=== PATIENT | male | born 1965 | race Caucasian/White ===

== ENCOUNTER 2017-01-06 06:17 | Observation (INO) ==
--- NOTE | 2017-01-04 10:52 | EKG Report ---
Test Performed on : 01/04/2017 10:21:58 AM Test Reason : surg Blood Pressure : / mmHG Vent. Rate : 062 BPM Atrial Rate : 062 BPM P-R Int : 136 ms QRS Dur : 088 ms QT Int : 414 ms P-R-T Axes : 043 046 051 degrees QTc Int : 420 ms Normal sinus rhythm. Nonspecific T wave abnormality aVL Normal ECG No previous ECGs available Confirmed by Himanshu Acevedo DO ([id number]) on 01/04/2017 6:21:04 PM
[2017-01-04 11:07] LABS: MANUAL DIFF NEEDED? NO
[2017-01-04 11:13] LABS: BASO% 0.2 % (0.0-0.8); EOS# 0.11 X1000 (0.0-0.7); EOS% 1.3 % (0.0-10.0); HEMATOCRIT 41.8 % (42.0-52.0); HEMOGLOBIN 14.8 g/dL (14.0-18.0); IMM GRAN# 0.04 X1000 (0.0-0.04); IMM GRAN% 0.5 % (0.0-0.5); LYMPH# 1.57 X1000 (1.2-3.4); LYMPH% 19.1 % (20.5-51.1); MCHC 35.4 g/dL (33-37); MCV 84.8 FL (81-99); MONO% 9.7 % (1.7-9.3); MPV 11.2 FL (7.4-10.4); NEUT% 69.2 % (42.2-75.2); PLT 180 X1000 (130-400); RBC 4.93 XMIL (4.7-6.1)
[2017-01-04 11:30] LABS: AGAP 14; BUN 15 mg/dL (8-22); CALCIUM 9.5 mg/dL (8.8-10.2); CHLORIDE 99 mmol/L (98-107); COSMO 280; POTASSIUM 4.2 mmol/L (3.5-5.1); SODIUM 140 mmol/L (136-145); TCO2 27 mmol/L (25-35)
[2017-01-06] MEDS ORDERED: PEPCID ONE (06:56)
[2017-01-06] MEDS ORDERED: REGLAN ONE (06:56)
[2017-01-06] MEDS ORDERED: LR 1,000 ML ONE (06:56)
[2017-01-06] MEDS ORDERED: KEFZOL 2 GM/D5W 2 GM/50 ML IVPB ONE (06:57)
[2017-01-06] MEDS ORDERED: ZOFRAN ONE (07:48)
[2017-01-06] MEDS ORDERED: ROBINUL ONE (07:48)
[2017-01-06] MEDS ORDERED: XYLOCAINE-MPF 2% ONE (07:48)
[2017-01-06] MEDS ORDERED: FENTANYL ONE ×2 (07:48→10:59)
[2017-01-06] MEDS ORDERED: DIPRIVAN 1% ONE (07:49)
[2017-01-06] MEDS ORDERED: VERSED ONE ×2 (08:26)
[2017-01-06] MEDS ORDERED: NAROPIN 0.5% ONE (08:26)
[2017-01-06] MEDS ORDERED: LABETALOL ONE (11:09)
[2017-01-06] MEDS ORDERED: PERICOLACE PO PRN (13:00)
--- NOTE | 2017-01-06 14:35 | OPERATIVE NOTE ---
PROCEDURE DATE: 01/06/2017 PREOPERATIVE DIAGNOSIS: Right talar neck fracture. POSTOPERATIVE DIAGNOSIS: Right talar neck fracture. PROCEDURE: Right open reduction internal fixation talar neck. SURGEON: Dr. Terrell Aguilar. [address] VENDOR: June Diego, nurse practitioner. ANESTHESIA: General with LMA and preoperative popliteal block. ESTIMATED BLOOD LOSS: About 20 mL. TOURNIQUET TIME: 130 minutes. IMPLANTS: 1. Biomet mini fragment plate and locking screws. 2. Biomet 4-0 fully threaded cannulated screw. DISPOSITION: To PACU, hemodynamically stable. INDICATION FOR PROCEDURE: Mr. Timmy Faith is a 51-year-old male, who presented to my clinic about 1 week ago with a talar neck fracture that was not subluxated or dislocated. I discussed with him then about open reduction internal fixation. He was pretty swollen at the time, so we waited for swelling to go down over the past week and a half. So discussed with him about proceeding to the OR today, and he expressed understanding and wished to proceed. DESCRIPTION OF PROCEDURE IN DETAIL: Mr. Faith was identified in the preop holding area. Right foot was marked as correct surgical site. He was then wheeled to the operating room, placed supine on the operating table. All bony prominences well padded. He was induced under general anesthesia. LMA was placed. Tourniquet was placed to the right thigh. Right lower extremity was then prepped with chlorhexidine gluconate scrub and then ChloraPrep, and draped in normal sterile fashion. Surgical pause was performed. We identified the correct patient, correct side, and the correct procedure. Preop antibiotics were given. I started with Esmarch to exsanguinate the right lower extremity and tourniquet inflated 300 mmHg. Total tourniquet time was 130 minutes. We then started on the medial side with a longitudinal incision in between the anterior tibialis tendon and the posterior tibial tendon. Dissection was carried down to the level of the capsule and then opened the capsule at the TN joint and then followed that proximally up onto the fractured area. We exposed that fractured area. There were a few loose pieces that were there, and those we debrided were out of the joint. It looked pretty comminuted on that medial aspect. At this point, we also made an incision on the lateral aspect of the hind foot and midfoot junction right along the line of the fourth metatarsal. Dissection was carried down just lateral to the peroneus tertius tendon which was retracted medially. It came right down onto the fracture site. I opened up that area, and then we were able to evaluate the fracture as a hole having to expose both medially and laterally. He had a lot of comminution especially laterally. There is a lot of small bone fragments. The ones that were free I ended up taking out; some of them were attached to soft tissues. We tried to leave as much soft tissue attachment as possible. I did dissect onto the head a little bit laterally because he had that head split seen on CT scan. So, ended up reducing that head split and placing a 2/5 headless compression screw across it to stabilize it. After this I was able to manipulate that talar head fragment, get a lot better alignment. It was really tough to gauge his reduction secondary to the amount of comminution that was there. It took a few tries to get our temporary fixation in perfect position both medially and laterally, but we were able to get a good reduction and fluoroscopically showed that we did have a good reduction as well. At this point, I placed a small 4 hole plate laterally in that shoulder area of the talus; 2 screws that went up into the body and then 2 screws in the head, and those were all locking screws. That held things together actually really well. I then came back to the medial side. The head was fairly comminuted still there on that most medial aspect. It was actually tough to get a little bit of fixation, but I was able to go a little through that comminution and go up under it and grab some cancellous bone with a fully threaded screw up into the body and actually held that really well. Range of motion of the TN joint then looked fine, and ankle range of motion looked fine as well. Final fluoroscopic imaging's were taken which showed on the lateral view you could see the posterior facet and it looked very well reduced and so did the middle facet. The ankle joint looked good and across the talar neck looked good as well. AP ankle revealed all hardware looked to be in good position. AP foot and canal oblique view showed that all our hardware looked to be in good position as well and our reduction looked good. At this point, we then irrigated everything copiously with normal saline, the joint and both medial and lateral incisions. I then closed the deep layer with 0 Vicryl, both medial and lateral sides, to cover all our hardware and close capsule, and then 2-0 Vicryl for the subcutaneous and nylon on the skin. Adaptic, 4 x 4s, ABDs, soft roll, posterior splint was applied. Tourniquet was let down and patient had good capillary refill return to the toes. Patient was then wheeled from general anesthesia, moved to his own bed and taken to the PACU in stable condition. Postoperatively, patient will be nonweightbearing right lower extremity. He will be admitted to observation overnight. If he is doing well, then I will discharge him home tomorrow morning. cc: Terrell Aguilar MD
[2017-01-06] MEDS: KEFZOL 1 GM/D5W 1 GM/50 ML IVPB IV SCH ×2 (16:28→23:59)
[2017-01-06] MEDS: OXY IR PO PRN (22:32)
[2017-01-07] MEDS: MORPHINE IV PRN ×5 (03:55→16:50)
[2017-01-07] MEDS ORDERED: TYLENOL PO PRN (04:19)
[2017-01-07] MEDS: LOVENOX SUBQ SCH ×2 (05:07→05:11)
[2017-01-07] MEDS: OXY IR PO PRN ×6 (05:07→23:13)
[2017-01-07] MEDS: LIPITOR PO SCH (09:36)
[2017-01-07] MEDS: OXYCONTIN PO SCH ×2 (09:36→21:00)
[2017-01-07] MEDS: ZIAC 10/6.25 MG PO SCH (09:37)
[2017-01-07] MEDS: LOFIBRA PO SCH (09:37)
[2017-01-07] MEDS: THERA M PLUS PO SCH (09:37)
--- NOTE | 2017-01-07 11:00 | PROGRESS NOTE ---
DATE: 01/07/2017 DATE OF SURGERY: 01/06/2017, status post right talar neck open reduction internal fixation SUBJECTIVE: Mr. Faith is lying in bed this morning. He is in a little bit of pain. His pain block wore off overnight and has been a little bit rough for him. OBJECTIVE: Right lower extremity exam: Splint is clean, dry, and intact. He is able to move the toes. Still has a little bit of numbness to the toes. He has good capillary refill to the toes. ASSESSMENT: Status post right open reduction and internal fixation of talar neck fracture. PLAN: I am going to up Mr. Faith's pain medicine. I am going to give him a long-acting OxyContin and then we will keep him today and we will plan on discharge tomorrow. He will be nonweightbearing of the right lower extremity. I did encourage him to use his IS to keep his lungs clear, and we will check on him in the morning. If everything looks good, then we will discharge him. cc: Terrell Aguilar MD
[2017-01-07] MEDS: ZOFRAN IV PRN (21:03)
[2017-01-08] MEDS: MORPHINE IV PRN (02:01)
[2017-01-08] MEDS: OXY IR PO PRN ×2 (03:24→06:56)
[2017-01-08] MEDS: LOVENOX SUBQ SCH (05:24)
--- NOTE | 2017-01-08 08:24 | PROGRESS NOTE ---
DATE: 01/08/2017 SUBJECTIVE: Mr. Faith is seen today for postop status post fixation of talus fracture. OBJECTIVE: At the present time, his pain is controlled, and he is afebrile with stable vital signs. The splint is clean and dry and intact. PLAN: He is discharged home today for outpatient followup. He will follow up with Dr. Aguilar in a week or two. cc: MD Terrell Crisostomo MD
[2017-01-08 08:26] VITALS: BP 138/65
[2017-01-08] MEDS: LOFIBRA PO SCH (08:35)
[2017-01-08] MEDS: LIPITOR PO SCH (08:35)
[2017-01-08] MEDS: THERA M PLUS PO SCH (08:35)
[2017-01-08] MEDS: ZIAC 10/6.25 MG PO SCH (08:36)
[2017-01-08] MEDS: ZOFRAN IV PRN (08:37)
[2017-01-08] MEDS: OXYCONTIN PO SCH (08:44)
== END 2017-01-08 11:44 | disposition home or self-care (01) ==
LOC: 4N 06:17 → OR 06:17
PROVIDERS: ADMIT Orthopaedic Surgery; ATTEND Orthopaedic Surgery